=== PATIENT | female | born 1995 | race Caucasian/White ===

== ENCOUNTER 2020-06-19 17:45 | Observation (INO) | payer OTHER ==
[~2020-06-19] VITALS: Ht 152.4 cm; Wt 60.0 kg
[2020-06-19 18:50] LABS: BASO % 0.4 % (0.0-2.0); EOS % 0.1 % (0-4.0); GRAN # 8.2 (1.4-6.5); GRAN % 82.7 % (42.2-75.2); HEMATOCRIT 40.9 % (37.0-47.0); LYMPH # 1.3 (1.2-3.4); LYMPH % 13.4 % (20.0-51.0); MEAN CELL VOLUME 84 fl (80.0-100.0); MEAN CORPUSCULAR HEMOGLOBIN 29 pg (27.0-31.0); MEAN CORPUSCULAR HGB CONC 34 g/dl (33.0-37.0); MEAN PLATELET VOLUME 11.8 fl (7.4-10.4); MONO # 0.3 (0.1-0.6); MONO % 3.1 % (1.7-9.3); PLATELET COUNT 291 K/mm3 (130-400); RED BLOOD COUNT 4.86 M/mm3 (4.10-5.30); REDCELL DISTRIBUTION WIDTH-CV 13.2 % (11.5-14.5)
[2020-06-19 19:00] LABS: ALBUMIN 4.8 gm/dL (3.5-5.0); BILIRUBIN,TOTAL 0.6 mg/dL (0.0-1.0); CALCIUM 9.6 mg/dL (8.4-10.2); CREATININE, serum 0.66 (0.52-1.25); POTASSIUM 3.8 mmol/L (3.4-5.0)
[2020-06-19 23:04] LABS: COLLECTION METHOD CLEAN CATCH
[2020-06-19 23:11] LABS: MUCOUS Present /lpf; PH 9 (5-8); SQUAMOUS EPITHELIAL 0-2 /hpf; URINE APPEARANCE Clear; URINE BACTERIA None Seen /hpf; URINE BILIRUBIN Negative (NEGATIVE); URINE BLOOD Negative (NEGATIVE); URINE COLOR Straw; URINE GLUCOSE 1+ (NEGATIVE); URINE KETONE 1+ (NEGATIVE); URINE LEUKOCYTE ESTERASE Negative (NEGATIVE); URINE NITRATE Negative (NEGATIVE); URINE PROTEIN(semi-quant) Negative (NEGATIVE); URINE UROBILINOGEN Negative (NEGATIVE)
--- NOTE | 2020-06-19 23:57 | NUR ---
PT ARRIVES FROM ED PER W/C WITH DX ABD PAIN, N/V. IS ALERT AND ORIENTED X4. SL TO LEFT AC.
[2020-06-20 00:21] VITALS: BP 131/63; PULSE 77; TEMP 98.6
[2020-06-20] MEDS ORDERED: LARISSIA-28 TA1 EACH PO (00:39)
--- NOTE | 2020-06-20 00:51 | NUR ---
ADMISSION QUESTIONS COMPLETED. IVF INFUSING TO LEFT AC WITHOUT REDNESS OR SWELLING. DENIES NAUSEA AND PAIN AT THIS TIME.
[2020-06-20 04:01] VITALS: BP 134/74; PULSE 63; TEMP 99.1
--- NOTE | 2020-06-20 04:34 | NUR ---
PT HAVING EMESIS, APPROX 30CC YELLOW/FOAMY. MEDICATED WITH ZOFRAN 4MG IVP NOW. DENIES NEED FOR PAIN MED AT THIS TIME.
--- NOTE | 2020-06-20 04:54 | NUR ---
PT DRY HEAVING. REPORTS PAIN IN ABD. MEDICATED WITH DILAUDID 0.5MG IVP AT THIS TIME.
--- NOTE | 2020-06-20 05:45 | NUR ---
STILL FEELING NAUSEATED. PHENERGAN 12.5MG IV INFUSING AT THIS TIME.
[2020-06-20 06:21] LABS: BASO % 0.1 % (0.0-2.0); GRAN % 77.5 % (42.2-75.2); HEMOGLOBIN 13.1 g/dl (12.5-16.0); LYMPH # 1.5 (1.2-3.4); LYMPH % 14.6 % (20.0-51.0); MEAN CELL VOLUME 85 fl (80.0-100.0); MEAN CORPUSCULAR HEMOGLOBIN 29 pg (27.0-31.0); MEAN CORPUSCULAR HGB CONC 34 g/dl (33.0-37.0); MEAN PLATELET VOLUME 11.8 fl (7.4-10.4); MONO # 0.8 (0.1-0.6); MONO % 7.4 % (1.7-9.3); PLATELET COUNT 248 K/mm3 (130-400); RED BLOOD COUNT 4.58 M/mm3 (4.10-5.30); REDCELL DISTRIBUTION WIDTH-CV 13.4 % (11.5-14.5)
[2020-06-20 06:30] LABS: BILIRUBIN,TOTAL 0.4 mg/dL (0.0-1.0); CALCIUM 8.2 mg/dL (8.4-10.2); CREATININE, serum 0.65 (0.52-1.25); POTASSIUM 3.4 mmol/L (3.4-5.0); TOTAL PROTEIN 6.8 gm/dL (6.4-8.2)
[2020-06-20 07:25] VITALS: BP 135/50; PULSE 82; TEMP 99
--- NOTE | 2020-06-20 11:24 | NUR ---
PT RESTING IN BED. DR CRUZ IN TO SEE PT THIS AM. ULTRASOUND ORDERED AND SPOKE WITH IN SERVICE EDUCATOR LIZ TO HELP WITH CALLING IN CULTURE MEDIA LABORATORY ASSISTANT TECH.
[2020-06-20 11:27] VITALS: BP 137/60; PULSE 72; TEMP 99.6
--- NOTE | 2020-06-20 11:43 | NUR ---
REPORT TO JENNI HILL.
--- NOTE | 2020-06-20 11:44 | NUR ---
Staffing Analyst offered prayer and support with patient.
--- NOTE | 2020-06-20 14:45 | NUR ---
SW spoke with patient the room to conduct intake evaluation. Patient lives in [place] with boyfrienhanna Tyson (P# [phone]). Patient has no DPOA and was not interested in paperwork at this time. Patient does not have a primary care physician. Patient was not interested in getting set up with PCP at this time. Patient uses [facility] for medications. Patient does not report problems obtaining medications. Patient plans to return home with boyfriend, who confirmed that he will provide transportation. Patient might discharge today. Social work will continue to follow.
[2020-06-20 16:02] VITALS: BP 128/67; PULSE 68; TEMP 99.1
--- NOTE | 2020-06-20 18:13 | NUR ---
Patient tolerating diet with mild nausea. Denies needs at this time.
--- NOTE | 2020-06-20 18:50 | NUR ---
Patient called out to nurses station, states she is having nausea, zofran given per orders. Emisis x1. No further needs at this time. Boyfriend at bedside will report off to retail shift leader.
[2020-06-20 20:10] VITALS: BP 147/87; PULSE 76; TEMP 97.4
--- NOTE | 2020-06-20 22:09 | NUR ---
PT NAUSEATED AT BEGINNING OF SHIFT. ALSO c/o PAIN IN ABDOMEN. SURGEON CERTIFIED DIALYSIS TECHNICIAN NOTIFIED. DAY SHIFT ADMIN. ZOFRAN WHICH WAS INEFFECTIVE. PT LATER ADMIN. 2 HALF DOSES OF PHENERGAN WHICH PT STATED HELPED. PT ALSO ADMIN. 1 NORCO FOR PAIN. I.V. D.C.'d PT STATED SHE WANTED TO GO HOME. DISCHARGE INSTRUCTIONS GIVEN WITH COPIES TO PT. PT ESCORTED TO SIGNIFICANT OTHER'S VEHICLE VIA WHEELCHAIR WITH BELONGINGS.
== END 2020-06-20 22:09 | disposition home or self-care (01) ==
LOC: COL.ER 17:45 → SURG 23:18
PROVIDERS: Nurse Practitioner; Physician Assistant; ADMIT Surgery
DX: R10.11 Right upper quadrant pain (principal); R10.31 Right lower quadrant pain; R11.2 Nausea with vomiting, unspecified; Z79.899 Other long term (current) drug therapy
CPT/HCPCS: J1170; J2405; J2550; J7030; J7120; Q9967

== ENCOUNTER 2020-07-08 21:56 | Emergency (ER) | payer OTHER ==
[~2020-07-08] VITALS: Ht 152.4 cm; Wt 54.5 kg
[~2020-07-08 21:56] MED LIST: LARISSIA-28 TA1 EACH PO
[2020-07-08 22:08] VITALS: TEMP 98.3
[2020-07-08 22:51] LABS: COLLECTION METHOD CLEAN CATCH
[2020-07-08 22:54] LABS: HEMATOCRIT 43.5 % (37.0-47.0); HEMOGLOBIN 14.6 g/dl (12.5-16.0); MEAN CELL VOLUME 85 fl (80.0-100.0); MEAN CORPUSCULAR HEMOGLOBIN 29 pg (27.0-31.0); MEAN CORPUSCULAR HGB CONC 34 g/dl (33.0-37.0); MEAN PLATELET VOLUME 11.7 fl (7.4-10.4); PLATELET COUNT 253 K/mm3 (130-400); REDCELL DISTRIBUTION WIDTH-CV 13.3 % (11.5-14.5)
[2020-07-08 23:06] LABS: MUCOUS Present /lpf; PH 6 (5-8); SQUAMOUS EPITHELIAL 0-2 /hpf; URINE APPEARANCE Hazy; URINE BACTERIA None Seen /hpf; URINE BILIRUBIN Negative (NEGATIVE); URINE BLOOD Negative (NEGATIVE); URINE COLOR Yellow; URINE GLUCOSE 1+ (NEGATIVE); URINE KETONE 2+ (NEGATIVE); URINE LEUKOCYTE ESTERASE Negative (NEGATIVE); URINE NITRATE Positive (NEGATIVE); URINE PROTEIN(semi-quant) 1+ (NEGATIVE); URINE RBC 0-2 /hpf; URINE UROBILINOGEN Negative (NEGATIVE)
[2020-07-08 23:08] LABS: BILIRUBIN,TOTAL 0.7 mg/dL (0.0-1.0); C-REACTIVE PROTEIN 0.9 mg/dL (0.0-0.9); CREATININE, serum 0.64 (0.52-1.25); POTASSIUM 3.9 mmol/L (3.4-5.0); TOTAL PROTEIN 8.4 gm/dL (6.4-8.2)
[2020-07-08 23:30] LABS: LYMPHOCYTE 5 % (20.0-51.0); NEUTROPHILS 92 % (42.0-75.2); PLATELET ESTIMATE NORMAL (NORMAL)
[2020-07-09] MEDS ORDERED: ZOFRAN ODT4 MG PO (01:07)
[2020-07-09] MEDS ORDERED: PHENERGAN 25 TA25 MG PO (01:07)
[2020-07-09] MEDS ORDERED: MACROBID 1100 MG/CAP PO (01:09)
[2020-07-09 01:30] VITALS: BP 126/70; PULSE 62
== END 2020-07-09 01:30 | disposition home or self-care (01) ==
LOC: COL.ER 21:56
PROVIDERS: Nurse Practitioner
DX: R10.11 Right upper quadrant pain (principal); R11.2 Nausea with vomiting, unspecified
CPT/HCPCS: J2270; J2405; J2550; J7030

== ENCOUNTER 2020-07-10 16:47 | Emergency (ER) | payer OTHER ==
[~2020-07-10] VITALS: Ht 152.4 cm; Wt 54.5 kg
[~2020-07-10 16:47] MED LIST changes: +MACROBID 1100 MG/CAP PO; +PHENERGAN 25 TA25 MG PO; +ZOFRAN ODT4 MG PO
[2020-07-10 16:58] VITALS: TEMP 98.8
[2020-07-10 17:45] LABS: ALBUMIN 5.2 gm/dL (3.5-5.0); BILIRUBIN,TOTAL 0.7 mg/dL (0.0-1.0); CALCIUM 9.7 mg/dL (8.4-10.2); CREATININE, serum 0.78 (0.52-1.25); POTASSIUM 3.4 mmol/L (3.4-5.0); TOTAL PROTEIN 8.7 gm/dL (6.4-8.2)
[2020-07-10 17:46] LABS: BASO % 0.5 % (0.0-2.0); EOS % 0.3 % (0-4.0); GRAN # 5.8 (1.4-6.5); GRAN % 72.7 % (42.2-75.2); HEMATOCRIT 44.6 % (37.0-47.0); LYMPH # 1.6 (1.2-3.4); LYMPH % 19.5 % (20.0-51.0); MEAN CELL VOLUME 85 fl (80.0-100.0); MEAN CORPUSCULAR HEMOGLOBIN 29 pg (27.0-31.0); MEAN CORPUSCULAR HGB CONC 34 g/dl (33.0-37.0); MEAN PLATELET VOLUME 11.5 fl (7.4-10.4); MONO # 0.5 (0.1-0.6); MONO % 6.7 % (1.7-9.3); PLATELET COUNT 250 K/mm3 (130-400); RED BLOOD COUNT 5.22 M/mm3 (4.10-5.30); REDCELL DISTRIBUTION WIDTH-CV 13.4 % (11.5-14.5)
[2020-07-10 18:01] LABS: COLLECTION METHOD CLEAN CATCH
[2020-07-10 18:09] LABS: MUCOUS Present /lpf; PH 5 (5-8); SQUAMOUS EPITHELIAL 0-2 /hpf; URINE APPEARANCE Clear; URINE BACTERIA None Seen /hpf; URINE BILIRUBIN Negative (NEGATIVE); URINE BLOOD Negative (NEGATIVE); URINE COLOR Yellow; URINE GLUCOSE Negative (NEGATIVE); URINE KETONE 2+ (NEGATIVE); URINE LEUKOCYTE ESTERASE Negative (NEGATIVE); URINE NITRATE Negative (NEGATIVE); URINE PROTEIN(semi-quant) 1+ (NEGATIVE); URINE RBC 0-2 /hpf; URINE UROBILINOGEN Negative (NEGATIVE)
[2020-07-10 19:50] VITALS: BP 124/70; PULSE 92
== END 2020-07-10 20:00 | disposition home or self-care (01) ==
LOC: COL.ER 16:47
PROVIDERS: Physician Assistant
DX: K80.50 Calculus of bile duct without cholangitis or cholecystitis without obstruction (principal)
CPT/HCPCS: J1630; J1885; J2405; J7030